=== PATIENT | male | born 1980 | race American Indian/Alaskan Native ===

== ENCOUNTER 2017-07-08 12:31 | Inpatient (IN) | payer OTHER ==
[2017-07-08 13:32] LABS: Basophils % (Auto) 0.3 % (0.0-1.8); Eosinophils % (Auto) 0.2 % (0.0-4.3); Hematocrit 41.6 % (35.5-45.6); Mean Corpuscular HGB Conc 34 % (32-34); Mean Corpuscular Hemoglobin 31 pg (28-32); Mean Corpuscular Volume 93 fl (84-94); Platelet Count 259 K/mm3 (140-440); Red Blood Count 4.49 M/mm3 (3.65-5.03); Red Cell Distribution Width 13.7 % (13.2-15.2); White Blood Count 8.1 K/mm3 (4.5-11.0)
--- NOTE | 2017-07-08 13:32 | XRay Report ---
ROUTINE CHEST, TWO VIEWS: HISTORY: Shortness of breath. The trachea, heart, mediastinal contour, lung renee and bony thorax are unremarkable. IMPRESSION: Unremarkable chest x-ray.
[2017-07-08 13:45] LABS: Anion Gap 27 mmol/L; BUN/Creatinine Ratio 13; Blood Urea Nitrogen 10 mg/dL (9-20); Calcium 8.1 mg/dL (8.4-10.2); Carbon Dioxide 19 mmol/L (22-30); Chloride 93.7 mmol/L (98-107); Potassium 4.5 mmol/L (3.6-5.0); Sodium 135 mmol/L (137-145)
[2017-07-08 13:49] LABS: Glucose 678 mg/dL (75-100)
[2017-07-08] MEDS ORDERED: NACL 0.9% 1000 ML 1,000 ML IV ONE (22:17)
[2017-07-08] MEDS ORDERED: D50W (25GM) Syringe IV PRN (22:20)
--- NOTE | 2017-07-08 22:21 | Emergency Department Report ---
- General Chief Complaint: Upper Respiratory Infection Stated Complaint: COUGHING,VOMITING Time Seen by Provider: 07/08/17 22:03 Source: patient Mode of arrival: Ambulatory Limitations: No Limitations - History of Present Illness MD Complaint: cough (FOR 5 DAYS), nasal congestion -: Gradual, days(s) (5) Severity: moderate - Related Data Home Medications Medication Instructions Recorded Confirmed Last Taken Lantus 40 units SC HS 05/29/17 05/29/17 05/27/17 12:00 Previous Rx's Medication Instructions Recorded Last Taken Type Humalog 20 units SC AC 30 Days 05/30/17 Unknown Rx Insulin Detemir [Levemir] 50 units SUB-Q QHS 30 Days units 05/30/17 Unknown Rx Levofloxacin [Levaquin] 750 mg PO QDAY #7 tablet 05/30/17 Unknown Rx Allergies Allergy/AdvReac Type Severity Reaction Status Date / Time No Known Allergies Allergy Verified 05/28/17 20:17 ED Review of Systems ROS: Stated complaint: COUGHING,VOMITING Other details as noted in HPI ED Past Medical Hx - Past Medical History Hx Congestive Heart Failure: No Hx Diabetes: Yes Hx Asthma: No Hx COPD: No Hx HIV: Yes - Surgical History Past Surgical History?: No - Social History Smoking Status: Never Smoker Substance Use Type: None - Medications Home Medications: Home Medications Medication Instructions Recorded Confirmed Last Taken Type Lantus 40 units SC HS 05/29/17 05/29/17 05/27/17 12:00 History Humalog 20 units SC AC 30 Days 05/30/17 Unknown Rx Insulin Detemir [Levemir] 50 units SUB-Q QHS 30 Days units 05/30/17 Unknown Rx Levofloxacin [Levaquin] 750 mg PO QDAY #7 tablet 05/30/17 Unknown Rx ED Physical Exam - General Limitations: No Limitations ED Course Vital Signs 07/08/17 07/08/17 07/08/17 12:49 20:50 20:52 Temperature 97.8 F Pulse Rate 105 H Respiratory 16 Rate Blood Pressure 144/87 O2 Sat by Pulse 96 99 100 Oximetry 07/08/17 07/08/17 07/08/17 20:54 20:56 20:59 Temperature Pulse Rate 105 H 104 H Respiratory 26 H 28 H 20 Rate Blood Pressure 142/85 142/85 O2 Sat by Pulse 99 99 97 Oximetry ED Medical Decision Making - Lab Data Result diagrams: 07/08/17 13:13 07/08/17 13:13 Critical care attestation.: If time is entered above; I have spent that time in minutes in the direct care of this critically ill patient, excluding procedure time. ED Disposition Condition: Stable Referrals: PRIMARY CARE,MD [Primary Care Provider] - 3-5 Days
[2017-07-08] MEDS ORDERED: NovoLIN R 100 UNITS in NACL 0.9% 99 ML IV SCH (23:00)
[2017-07-08 23:44] LABS: Alanine Aminotransferase 15 units/L (7-56); Albumin 3.6 g/dL (3.9-5); Albumin/Globulin Ratio 1.3 %; Alkaline Phosphatase 169 units/L (35-129); Anion Gap 24 mmol/L; BUN/Creatinine Ratio 13; Blood Urea Nitrogen 13 mg/dL (9-20); Calcium 9.1 mg/dL (8.4-10.2); Carbon Dioxide 23 mmol/L (22-30); Chloride 100.2 mmol/L (98-107); Glucose 72 mg/dL (75-100); Potassium 3.8 mmol/L (3.6-5.0); Sodium 143 mmol/L (137-145); Total Protein 6.3 g/dL (6.3-8.2)
[2017-07-08 23:45] LABS: Magnesium 1.8 mg/dL (1.7-2.3)
[2017-07-08 23:47] LABS: Phosphorous 0.8 mg/dL (2.5-4.5)
[2017-07-09] MEDS ORDERED: ATROVENT IH ONE ×2 (00:18→01:52)
[2017-07-09] MEDS ORDERED: XOPENEX IH ONE ×2 (00:19→01:52)
[2017-07-09] MEDS ORDERED: BACTRIM DS PO ONE (00:20)
--- NOTE | 2017-07-09 00:42 | History and Physical Report ---
History of Present Illness Date of examination: 07/09/17 Date of admission: 07/09/17 Chief complaint: Cough Nausea and vbomiting History of present illness: Patient is a 37-year-old with diabetes mellitus type 1, HIV infection. For diabetes he is on Humalog Qac and Levemir qhs. He presents with cough, nausea and vomiting. He said cough has being productive of white sputum for about a week. He denies any shortness of breath or chest pain. He also complains of nausea vomiting and vomited a few times, no blood in vomitus. In Emergency Department blood glucose was 678. However patient injected himself with his own Insulin: Humalog 20 Units subcut while in waiting room, and repeat fingerstick blood glucose was 83. Labs show hypophosphatemia with phosphorus of 0.8, tachycardia with heart rates in 120s. We will admit for further management. Past History Past Medical History: diabetes (diabetes mellitus type 1), HIV/AIDS Past Surgical History: No surgical history Social history: single, lives with family, smoking (occasionally), alcohol abuse (ocasionally) Family history: diabetes, hypertension Medications and Allergies Allergies Allergy/AdvReac Type Severity Reaction Status Date / Time No Known Allergies Allergy Verified 05/28/17 20:17 Home Medications Medication Instructions Recorded Confirmed Last Taken Type Humalog 20 units SC AC 30 Days 05/30/17 07/09/17 07/08/17 18:00 Rx Insulin Detemir [Levemir] 50 units SUB-Q QHS 30 Days units 05/30/17 07/09/17 21:00 Rx Elviteg/Cob/Emtri/Tenof Alafen 1 each PO 07/09/17 07/08/17 09:00 History [Genvoya Tablet] Active Meds: Active Medications Dextrose (D50w (25gm) Syringe) 0 ml IV PRN PRN PRN Reason: Hypoglycemia Insulin Human Regular 100 (units/ Sodium Chloride) 100 mls @ 1 mls/hr IV TITR EVY; 1 UNITS/HR PRN Reason: Protocol Review of Systems All systems: negative (no fever, no SOB, no chest pain, no abd pain. All other systems reviewed and are negative) Exam - Physical Exam Narrative exam: GEN APPEARANCE : Not in acute distress HEENT: Normocephalic, Atraumatic NECK : supple, no JVD LUNGS: clear to auscultation bilaterally, no rales, no wheeze HEART: S1 and S2 regular tachycardia, no murmurs, rubs or gallop, ABD: Soft, non tender, non distended, normal bowel sounds EXT: No edema, no clubbing, no cyanosis NEURO: Awake,alert, oriented x 3, moves all extremities, Psych:Normal mood - Constitutional Vitals: Temp Pulse Resp BP Pulse Ox 97.8 F 104 H 20 142/85 97 07/08/17 12:49 07/08/17 20:56 07/08/17 20:59 07/08/17 20:56 07/08/17 20:59 Results - Labs CBC & Chem 7: 07/08/17 13:13 07/08/17 22:58 Labs: Abnormal lab results 07/08/17 07/08/17 07/08/17 Range/Units 13:13 13:13 22:58 [place] % (Auto) 7.5 H (0.0-7.3) % Seg Neutrophils % 75.8 H (40.0-70.0) % Sodium 135 L (137-145) mmol/L Chloride 93.7 L (98-107) mmol/L Carbon Dioxide 19 L (22-30) mmol/L Glucose 678 H* (75-100) mg/dL POC Glucose (70-105) Calcium 8.1 L (8.4-10.2) mg/dL Phosphorus 0.80 L* (2.5-4.5) mg/dL Alkaline Phosphatase (35-129) units/L Albumin (3.9-5) g/dL 07/08/17 07/08/17 Range/Units 22:58 23:45 [place] % (Auto) (0.0-7.3) % Seg Neutrophils % (40.0-70.0) % Sodium (137-145) mmol/L Chloride (98-107) mmol/L Carbon Dioxide (22-30) mmol/L Glucose 72 L (75-100) mg/dL POC Glucose 55 L (70-105) Calcium (8.4-10.2) mg/dL Phosphorus (2.5-4.5) mg/dL Alkaline Phosphatase 169 H (35-129) units/L Albumin 3.6 L (3.9-5) g/dL Assessment and Plan Diabetic ketoacidosis. Admit to telemetry. He had elevated glucose of 678. However he took his own Humalog insulin 20 Units subcutaneous while waiting in ED and his repeat glucose is was 83. Will not put on Insulin drip and use subcutanous insulin instead. Repeat BMP in the morning. Acute bronchitis. He has cough and malaise for 1 week, Chest x-ray unremarkable. Albuterol nebulizer, supplemental oxygen. Sinus tachycardia likely due to dehydration. Put on Teleetry Dehydration. Given bolus iv fluids. Start maintenance iv fluids NS at 125 ml/hr HIV infection. Cont HAART . Follows with ID Physician as outpatient. DVT prophylaxis with heparin subcut Full code status
[2017-07-09] MEDS ORDERED: ZOFRAN IV PRN (00:45)
[2017-07-09] MEDS ORDERED: DULCOLAX PR PRN (00:45)
[2017-07-09] MEDS ORDERED: TYLENOL PO PRN (00:45)
[2017-07-09] MEDS ORDERED: MILK OF MAGNESIA PO PRN (00:45)
[2017-07-09] MEDS ORDERED: NORCO 5/325 PO PRN (00:45)
[2017-07-09] MEDS ORDERED: KPHOS 45 MMOL in NACL 0.9% 500 ML 500 ML IV ONE (00:54)
[2017-07-09] MEDS ORDERED: LEVAQUIN 750MG/150ML 750 MG/150 ML BAG IV SCH (01:00)
[2017-07-09] MEDS ORDERED: PROVENTIL IH PRN (01:31)
[2017-07-09] MEDS ORDERED: PROVENTIL IH ONE (01:51)
[2017-07-09 02:15] LABS: Urine Drugs of Abuse Note Disclamer
[2017-07-09 02:31] LABS: Bacteria,Urine 1+ /HPF (Negative); Bilirubin,Urine NEG (Negative); Blood,Urine NEG (Negative); Ketones,Urine 20 mg/dL (Negative); Leukocyte Esterase,Urine NEG (Negative); Mucus,Urine 2+ /HPF; Nitrite,Urine NEG (Negative); Urobilinogen,Urine < 2.0 mg/dL (<2.0)
[2017-07-09] MEDS: NACL 0.9% 1000 ML 1,000 ML IV SCH ×2 (02:53→18:32)
[2017-07-09] MEDS: HEPARIN SUB-Q SCH ×3 (06:19→21:54)
[2017-07-09] MEDS: TESSALON PERLES PO PRN (06:21)
[2017-07-09] MEDS: NOVOLOG SUB-Q SCH ×3 (07:45→16:55)
[2017-07-09 08:04] LABS: BUN/Creatinine Ratio 15; Blood Urea Nitrogen 15 mg/dL (9-20); Carbon Dioxide 15 mmol/L (22-30); Chloride 89.3 mmol/L (98-107); Sodium 130 mmol/L (137-145)
[2017-07-09 08:07] LABS: Anion Gap 32 mmol/L; Glucose 616 mg/dL (75-100); Potassium 6.4 mmol/L (3.6-5.0)
[2017-07-09] MEDS ORDERED: KIONEX PO ONE (09:00)
[2017-07-09] MEDS ORDERED: NON-FORMULARY (Elviteg/Cob/Emtri/Tenof Alafen [Genvoya Tablet] 1 EACH) PO SCH (10:00)
[2017-07-09] MEDS: ZITHROMAX 500 MG in NACL 0.9% 250ML 250 ML IV SCH (11:18)
--- NOTE | 2017-07-09 11:25 | Progress Note ---
Assessment and Plan Assessment and plan: Patient is 37-year-old man history HIV and insulin-dependent diabetes mellitus presents with cough and nausea/vomiting. Chest x-ray reported no acute findings. -Intractable nausea vomiting: Treat with anti-medics, add IV Reglan -Acute bronchitis: Treat symptomatically -Insulin-dependent diabetes mellitus, uncontrolled hyperglycemia blood sugar 616 : Increase insulin -Hyperkalemia: Give Kayexalate, monitor on telemetry, give insulin, repeat levels. -HIV: Continue antivirals -Hyponatremia due to hyperglycemia with dehydration: IV fluids -DVT prophylaxis: Subcutaneous heparin -Hypophosphatemia: Stop K-Phos b/c of elevated potassium History Interval history: Patient was seen and examined. Follow-up on current diagnosis. Overnight uneventful. Patient denies any chest pain, shortness breath, or severe headaches. Imaging, nursing note, chart, labs and old chart reviewed. Discussed with patient. Patient was admitted for coughing with nausea vomiting which still present. No abdominal pain Hospitalist Physical - Physical exam Narrative exam: GEN: WDWN, NAD, AWAKE, ALERT, ORIENTATED 3 HEENT: NCAT, EOMI, PERRL, OP Clear NECK: supple, no adenopathy, no thyromegaly, no JVD CVS/HEART: RRR, NORMAL S1S2, NO JVD, pulses present bilaterally CHEST/LUNGS: CTA B, Symmetrical chest expansion, good air entry bilaterally GI/Abdomen: soft, NTND, good bowel sounds, no guarding or rebound /Bladder: no suprapubic tenderness, no CVA or paraspinal tenderness EXT/Skin: no c/c/e, no obvious rash MSK: FROM x 4 Neuro: CN 2-12 grossly intact, no new focal deficits Psych: calm - Constitutional Vitals: Temp Pulse Resp BP Pulse Ox 98.3 F 111 H 22 145/84 96 07/09/17 05:27 07/09/17 05:27 07/09/17 05:27 07/09/17 05:27 07/09/17 05:27 Results - Labs CBC & Chem 7: 07/08/17 13:13 07/09/17 07:21 Labs: Laboratory Last Values WBC 8.1 K/mm3 (4.5-11.0) 07/08/17 13:13 RBC 4.49 M/mm3 (3.65-5.03) 07/08/17 13:13 Hgb 14.0 gm/dl (11.8-15.2) 07/08/17 13:13 Hct 41.6 % (35.5-45.6) 07/08/17 13:13 MCV 93 fl (84-94) 07/08/17 13:13 MCH 31 pg (28-32) 07/08/17 13:13 MCHC 34 % (32-34) 07/08/17 13:13 RDW 13.7 % (13.2-15.2) 07/08/17 13:13 Plt Count 259 K/mm3 (140-440) 07/08/17 13:13 Lymph % (Auto) 16.2 % (13.4-35.0) 07/08/17 13:13 [place] % (Auto) 7.5 % (0.0-7.3) H 07/08/17 13:13 Eos % (Auto) 0.2 % (0.0-4.3) 07/08/17 13:13 Baso % (Auto) 0.3 % (0.0-1.8) 07/08/17 13:13 Lymph # 1.3 K/mm3 (1.2-5.4) 07/08/17 13:13 [place] # 0.6 K/mm3 (0.0-0.8) 07/08/17 13:13 Eos # 0.0 K/mm3 (0.0-0.4) 07/08/17 13:13 Baso # 0.0 K/mm3 (0.0-0.1) 07/08/17 13:13 Seg Neutrophils % 75.8 % (40.0-70.0) H 07/08/17 13:13 Seg Neutrophils # 6.1 K/mm3 (1.8-7.7) 07/08/17 13:13 Sodium 130 mmol/L (137-145) L D 07/09/17 07:21 Potassium 6.4 mmol/L (3.6-5.0) H* D 07/09/17 07:21 Chloride 89.3 mmol/L (98-107) L 07/09/17 07:21 Carbon Dioxide 15 mmol/L (22-30) L D 07/09/17 07:21 Anion Gap 32 mmol/L 07/09/17 07:21 BUN 15 mg/dL (9-20) 07/09/17 07:21 Creatinine 1.0 mg/dL (0.8-1.5) 07/09/17 07:21 Estimated GFR > 60 ml/min 07/09/17 07:21 BUN/Creatinine Ratio 15 % 07/09/17 07:21 Glucose 616 mg/dL (75-100) H* 07/09/17 07:21 POC Glucose 378 (70-105) H 07/09/17 02:47 Calcium 8.0 mg/dL (8.4-10.2) L 07/09/17 07:21 Phosphorus 0.80 mg/dL (2.5-4.5) L* 07/08/17 22:58 Magnesium 1.80 mg/dL (1.7-2.3) 07/08/17 22:58 Total Bilirubin 0.20 mg/dL (0.1-1.2) 07/08/17 22:58 AST 20 units/L (5-40) 07/08/17 22:58 ALT 15 units/L (7-56) 07/08/17 22:58 Alkaline Phosphatase 169 units/L (35-129) H 07/08/17 22:58 Total Protein 6.3 g/dL (6.3-8.2) 07/08/17 22:58 Albumin 3.6 g/dL (3.9-5) L 07/08/17 22:58 Albumin/Globulin Ratio 1.3 % 07/08/17 22:58 Urine Color Yellow (Yellow) 07/08/17 02:13 Urine Turbidity Clear (Clear) 07/08/17 02:13 Urine pH 6.0 (5.0-7.0) 07/08/17 02:13 Ur Specific [place] 1.027 (1.003-1.030) 07/08/17 02:13 Urine Protein 100 mg/dl mg/dL (Negative) 07/08/17 02:13 Urine Glucose (UA) >=500 mg/dL (Negative) 07/08/17 02:13 Urine Ketones 20 mg/dL (Negative) 07/08/17 02:13 Urine Blood Neg (Negative) 07/08/17 02:13 Urine Nitrite Neg (Negative) 07/08/17 02:13 Urine Bilirubin Neg (Negative) 07/08/17 02:13 Urine Urobilinogen < 2.0 mg/dL (<2.0) 07/08/17 02:13 Ur Leukocyte Esterase Neg (Negative) 07/08/17 02:13 Urine WBC (Auto) 5.0 /HPF (0.0-6.0) 07/08/17 02:13 Urine RBC (Auto) 2.0 /HPF (0.0-6.0) 07/08/17 02:13 U Epithel Cells (Auto) < 1.0 /HPF (0-13.0) 07/08/17 02:13 Urine Bacteria (Auto) 1+ /HPF (Negative) 07/08/17 02:13 Hyaline Casts 15 /LPF 07/08/17 02:13 Urine Mucus 2+ /HPF 07/08/17 02:13 Urine Opiates Screen Presumptive negative 07/09/17 02:13 Urine Methadone Screen Presumptive negative 07/09/17 02:13 Ur Barbiturates Screen Presumptive negative 07/09/17 02:13 Ur Phencyclidine Scrn Presumptive negative 07/09/17 02:13 Ur Amphetamines Screen Presumptive negative 07/09/17 02:13 U Benzodiazepines Scrn Presumptive negative 07/09/17 02:13 Urine Cocaine Screen Presumptive negative 07/09/17 02:13 U Marijuana (THC) Screen Presumptive negative 07/09/17 02:13 Drugs of Abuse Note Disclamer 07/09/17 02:13
[2017-07-09] MEDS ORDERED: REGLAN IV PRN (11:29)
[2017-07-09 14:29] LABS: Anion Gap 23 mmol/L; BUN/Creatinine Ratio 16; Blood Urea Nitrogen 16 mg/dL (9-20); Calcium 8.4 mg/dL (8.4-10.2); Carbon Dioxide 21 mmol/L (22-30); Chloride 100.5 mmol/L (98-107); Glucose 160 mg/dL (75-100); Potassium 3.8 mmol/L (3.6-5.0); Sodium 141 mmol/L (137-145)
[2017-07-09] MEDS ORDERED: LEVEMIR SUB-Q SCH (22:00)
[2017-07-10] MEDS: NACL 0.9% 1000 ML 1,000 ML IV SCH (05:31)
[2017-07-10] MEDS: HEPARIN SUB-Q SCH (05:31)
[2017-07-10 06:40] LABS: Hematocrit 37.5 % (35.5-45.6); Hemoglobin 13.1 gm/dl (11.8-15.2); Mean Corpuscular HGB Conc 35 % (32-34); Mean Corpuscular Hemoglobin 32 pg (28-32); Mean Corpuscular Volume 91 fl (84-94); Platelet Count 234 K/mm3 (140-440); Red Blood Count 4.14 M/mm3 (3.65-5.03); Red Cell Distribution Width 13.8 % (13.2-15.2); White Blood Count 7.6 K/mm3 (4.5-11.0)
[2017-07-10 06:58] LABS: Anion Gap 15 mmol/L; BUN/Creatinine Ratio 10; Blood Urea Nitrogen 7 mg/dL (9-20); Calcium 8.2 mg/dL (8.4-10.2); Carbon Dioxide 27 mmol/L (22-30); Chloride 103.1 mmol/L (98-107); Glucose 70 mg/dL (75-100); Sodium 142 mmol/L (137-145)
[2017-07-10] MEDS: NOVOLOG SUB-Q SCH (08:00)
[2017-07-10 09:23] VITALS: BP 137/77
--- NOTE | 2017-07-10 10:49 | Discharge Summary ---
Providers - Providers Date of Admission: 07/09/17 00:45 Date of discharge: 07/10/17 Attending physician: MICKY WHEELER 07/09/17 00:52 Consult to Physician [CONS] Stat Consulting Provider: YASEMIN CARTER Reason For Exam: ADMISSION OF PT TO [facility] consult to:: ED Notified:: YES Phone number called:: [facility] [employer] Was contact made?: Yes If yes, spoke with:: DR CARTER, REGARDING PNEUMONIA, SAT 91 % ON RA OF PT, Time called:: 12:30 Primary care physician: DIRECTIONAL SUR[employer]Y DRAFTER Hospitalization Condition: Stable Hospital course: Patient is 37-year-old man history HIV and insulin-dependent diabetes mellitus presents with cough and nausea/vomiting. Chest x-ray reported no acute findings. -Intractable nausea vomiting: Treat with anti-medics, add IV Reglan -Acute bronchitis: Treat symptomatically -Insulin-dependent diabetes mellitus, uncontrolled hyperglycemia blood sugar 616 : Increase insulin -Hyperkalemia: Give Kayexalate, monitor on telemetry, give insulin, repeat levels. -HIV: Continue antivirals -Hyponatremia due to hyperglycemia with dehydration: IV fluids -DVT prophylaxis: Subcutaneous heparin -Hypophosphatemia: Stop K-Phos b/c of elevated potassium Disposition: DC-01 TO HOME OR SELFCARE Time spent for discharge: 38 min Core Measure Documentation - Palliative Care Palliative Care/ Comfort Measures: Not Applicable - Core Measures Any of the following diagnoses?: none - VTE Discharge Requirements Deep Vein Thrombosis/Pulmonary Embolism Present on Admission: No Has pt received <5 days of overlap therapy or INR<2.0: No Anticoagulant overlap therapy prescribed at discharge: No Contraindication No Overlap Therapy order at DC: Not Indicated Exam - Physical Exam Narrative exam: GEN: WDWN, NAD, AWAKE, ALERT, ORIENTATED 3 HEENT: NCAT, EOMI, PERRL, OP Clear NECK: supple, no adenopathy, no thyromegaly, no JVD CVS/HEART: RRR, NORMAL S1S2, NO JVD, pulses present bilaterally CHEST/LUNGS: CTA B, Symmetrical chest expansion, good air entry bilaterally GI/Abdomen: soft, NTND, good bowel sounds, no guarding or rebound /Bladder: no suprapubic tenderness, no CVA or paraspinal tenderness EXT/Skin: no c/c/e, no obvious rash MSK: FROM x 4 Neuro: CN 2-12 grossly intact, no new focal deficits Psych: calm - Constitutional Vitals: Temp Pulse Resp BP Pulse Ox 98.0 F 102 H 18 137/77 97 07/10/17 08:24 07/10/17 08:24 07/10/17 08:24 07/10/17 08:24 07/10/17 08:24 Plan Activity: other (no strenous activity until cleared pcp, blood sugars should be >70 prior to driving) Diet: diabetic Special Instructions: record blood sugar diary (before meals) Follow up with: PRIMARY CARE, [Primary Care Provider] - 3-5 Days Prescriptions: Insulin Detemir [Levemir] 45 units SUB-Q QHS 30 Days #30 day Levofloxacin [Levaquin] 750 mg PO QDAY #5 day
[2017-07-10] MEDS ORDERED: K-DUR PO ONE (11:00)
[2017-07-10] MEDS: TESSALON PERLES PO PRN (11:34)
[2017-07-10] MEDS: ZITHROMAX 500 MG in NACL 0.9% 250ML 250 ML IV SCH (11:35)
[2017-07-10] MEDS ORDERED: D50W (25GM) Vial IV PRN (13:00)
[2017-07-10] MEDS ORDERED: D50W (25GM) Syringe IV PRN (13:29)
[2017-07-10] MEDS ORDERED: NOVOLOG SUB-Q SCH (13:35)
== END 2017-07-10 15:35 | disposition home or self-care (01) | DRG 637 ==
LOC: ED 12:31 → 4A 07-09 00:45
PROVIDERS: ADMIT Internal Medicine; ATTEND Internal Medicine
DX: E10.10 Type 1 diabetes mellitus with ketoacidosis without coma (principal); B20 Human immunodeficiency virus [HIV] disease; E87.1 Hypo-osmolality and hyponatremia; E86.0 Dehydration; E87.5 Hyperkalemia; E83.39 Other disorders of phosphorus metabolism; J20.9 Acute bronchitis, unspecified; Z79.899 Other long term (current) drug therapy; Z79.4 Long term (current) use of insulin; Z81.8 Family history of other mental and behavioral disorders; Z82.49 Family history of ischemic heart disease and other diseases of the circulatory system
CPT/HCPCS: 36415; 71020; 80048; 80053; 80307; 81001; 82962; 83735; 84100; 85025; 85027; 87040; 87400; 93005; 93010; 96374; 96375; J0456; J1644; J1815; J1818; J1956; J2405; J7030; J7040; J7050